=== PATIENT | female | born 1985 | race American Indian/Alaskan Native ===

== ENCOUNTER 2018-08-12 21:21 | Emergency (ER) | payer OTHER ==
--- NOTE | 2018-08-12 21:34 | Emergency Department Report ---
Blank Doc - Documentation Documentation: This is a 32-year-old female that presents with epigastric pain with nausea. Denies any vomiting. Denies any other complaints or symptoms. This initial assessment/diagnostic orders/clinical plan/treatment(s) is/are subject to change based on patient's health status, clinical progression and re- assessment by fellow clinical providers in the ED. Further treatment and workup at subsequent clinical providers discretion. Patient/guardians urged not to elope from the ED as their condition may be serious if not clinically assessed and managed. Initial orders include: 1- Patient sent to [facility] for further evaluation and treatment 2- labs 3- UA
[2018-08-12 22:05] LABS: Basophils # (Auto) 0.1 K/mm3 (0.0-0.1); Basophils % (Auto) 1.2 % (0.0-1.8); Eosinophils # (Auto) 0.2 K/mm3 (0.0-0.4); Eosinophils % (Auto) 2.8 % (0.0-4.3); Hematocrit 38.9 % (30.3-42.9); Hemoglobin 12.7 gm/dl (10.1-14.3); Lymphocytes # (Auto) 2.1 K/mm3 (1.2-5.4); Mean Corpuscular HGB Conc 33 % (30-34); Mean Corpuscular Volume 78 fl (79-97); Monocytes # (Auto) 0.3 K/mm3 (0.0-0.8); Monocytes % (Auto) 4.3 % (0.0-7.3); Platelet Count 240 K/mm3 (140-440); Red Blood Count 4.98 M/mm3 (3.65-5.03); Red Cell Distribution Width 13.6 % (13.2-15.2)
[2018-08-12 22:19] LABS: Alanine Aminotransferase 7 units/L (7-56); Albumin 4.6 g/dL (3.9-5); BUN/Creatinine Ratio 13; Blood Urea Nitrogen 12 mg/dL (7-17); Calcium 9.6 mg/dL (8.4-10.2); Hemolysis Index 4
[2018-08-12 22:20] LABS: Bilirubin,Direct < 0.2 mg/dL (0-0.2)
[2018-08-12 22:50] LABS: Bilirubin,Urine NEG (Negative); Blood,Urine SM (Negative); Color,Urine Colorless (Yellow); Protein,Urine <15 mg/dL mg/dL (Negative); Urobilinogen,Urine < 2.0 mg/dL (<2.0)
[2018-08-12] MEDS ORDERED: NORCO 5/325 PO ONE (23:49)
[2018-08-12] MEDS ORDERED: ALUM-MAG HYDROX-SIMETH 200-200-20MG/5ML PO ONE (23:50)
[2018-08-12] MEDS ORDERED: LIDOCAINE VISCOUS 2% PO ONE (23:50)
--- NOTE | 2018-08-12 23:52 | Emergency Department Report ---
HPI - General Chief Complaint: Abdominal Pain Time Seen by Provider: 08/12/18 21:35 - HPI HPI: 32-year-old -[place] female presents to the emergency department with a 2 day history of some upper abdominal pain, nausea without vomiting, and a mild frontal headache. Currently the headache is 3 out of 10 and is located over the frontal sinuses. The patient says that the abdominal pain worsens with food. She recently became a vegetarian. She took some ibuprofen for her discomfort prior to arrival with some mild relief. Otherwise she denies any past medical history. No recent travel or sick contacts at home. She denies any vision change, slurred speech or any neurological deficits. She denies any vaginal bleeding, vaginal discharge, dysuria or diarrhea. ED Past Medical Hx - Past Medical History Previous Medical History?: No - Surgical History Past Surgical History?: Yes Hx Appendectomy: Yes - Social History Smoking Status: Never Smoker Substance Use Type: None - Medications Home Medications: Home Medications Medication Instructions Recorded Confirmed Last Taken Type Omeprazole 20 mg PO QDAY #20 capsule. 08/13/18 Unknown Rx ED Review of Systems ROS: Stated complaint: ABD PAIN Other details as noted in HPI Comment: All other systems reviewed and negative Constitutional: denies: chills, fever Eyes: denies: eye pain ENT: denies: ear pain, throat pain Respiratory: denies: cough, shortness of breath Cardiovascular: denies: chest pain, palpitations Gastrointestinal: abdominal pain, nausea. denies: vomiting Genitourinary: denies: dysuria, discharge Musculoskeletal: denies: back pain, arthralgia Skin: denies: rash, lesions Neurological: headache. denies: weakness, numbness Physical Exam - Physical Exam Physical Exam: GENERAL: The patient is well-developed well-nourished. HEENT: Normocephalic. Atraumatic. Patient has moist mucous membranes. EYES: Extraocular motions are intact. Pupils are equal and reactive to light bilaterally. No nystagmus. NECK: Supple. Trachea is midline. CHEST/LUNGS: Clear to auscultation. There is no respiratory distress noted. HEART/CARDIOVASCULAR: Regular. There is no tachycardia. There is no obvious murmur. ABDOMEN: Abdomen is soft. Mild upper abdominal tenderness to palpation. No guarding. Patient has normal bowel sounds. There is no abdominal distention. SKIN: Skin is warm and dry. NEURO: The patient is awake, alert, and oriented. The patient is cooperative. The patient has no focal neurologic deficits. The patient has normal speech. Cranial nerves II through XII grossly intact. MUSCULOSKELETAL: There is no tenderness or deformity. There is no limitation range of motion. There is no evidence of acute injury. ED Medical Decision Making - Lab Data Result diagrams: 08/12/18 21:54 08/12/18 21:54 - Radiology Data Radiology results: report reviewed PROCEDURE: US ABDOMEN LIMITED TECHNIQUE: Routine imaging was obtained of the right upper quadrant. HISTORY: upper abd pain COMPARISONS: None FINDINGS: The gallbladder is normal in size and wall thickness. Stones are not seen. The common bile measures 2.4 mm which is normal. The liver is normal in size and echotexture. The abdominal aorta proximally is normal in caliber 1.8 cm. The entire aorta is not seen. The right kidney shows no evidence of hydronephrosis. It measures 9.6 x 3.4 x 4.4. The pancreatic head appears normal. The entire pancreas is not seen. IMPRESSION: Within normal limits.. This document is electronically signed by King Couch MD., August 13 2018 01:04:09 AM ET Transcribed By: RB Dictated By: KING COUCH MD Electronically Authenticated By: KING COUCH MD Signed Date/Time: 08/13/18 010 - Medical Decision Making Patient presents with a two-day history of a mild frontal headache and upper abdominal pain with some nausea without vomiting. On examination she has no focal, motor or sensory deficits in her cranial nerves are intact. She says that the headache was mild at about 2 out of 10 and without any deficits and did not feel that CT imaging of the head was necessary at this time. The labs were unremarkable. An upper quadrant abdominal ultrasound was done that did not show any acute process. She was given a GI cocktail and a pain pill. Upon reevaluation she is feeling improved. Some of her symptoms and descriptions sound consistent with GERD and/or gastritis. We discussed some dietary and/or lifestyle changes to make. She will go home on some omeprazole. She has been given a primary care and GI referral. She will return to the ER with any worsening of her symptoms or any acute distress. - Differential Diagnosis GERD, gastritis, cholelithiasis, pancreatitis, tension headache Critical Care Time: No Critical care attestation.: If time is entered above; I have spent that time in minutes in the direct care of this critically ill patient, excluding procedure time. ED Disposition Clinical Impression: Abdominal pain Qualifiers: Abdominal location: upper abdomen, unspecified Qualified Code(s): R10.10 - Upper abdominal pain, unspecified Headache Qualifiers: Headache type: unspecified Headache chronicity pattern: unspecified pattern Intractability: not intractable Qualified Code(s): R51 - Headache Disposition: TO HOME OR SELFCARE Is pt being admited?: No Condition: Stable Instructions: Gastroesophageal Reflux Disease (ED), Acute Headache (ED), Abdominal Pain (ED) Additional Instructions: Please follow up with a primary care physician in the next few days. I am also giving you a referral for a field artillery fire control man, Dr. Hua, to follow up regarding your abdominal pain. Return to the emergency Department with any worsening of your symptoms or any acute distress. Prescriptions: Omeprazole 20 mg PO QDAY #20 capsule. Referrals: [facility] [Outside] - 3-5 Days CLINTON HUA MD [Staff Physician] - 2-3 Days NANDO RIVERA MD [Primary Care Provider] - 2-3 Days
--- NOTE | 2018-08-13 01:06 | Ultrasound Report ---
PROCEDURE: US ABDOMEN LIMITED TECHNIQUE: Routine imaging was obtained of the right upper quadrant. HISTORY: upper abd pain COMPARISONS: None FINDINGS: The gallbladder is normal in size and wall thickness. Stones are not seen. The common bile measures 2 .4 mm which is normal. The liver is normal in size and echotexture. The abdominal aorta proximally is normal in caliber 1.8 cm. The entire aorta is not seen. The right kidney shows no evidence of hydron ephrosis. It measures 9.6 x 3.4 x 4.4. The pancreatic head appears normal. The entire pancreas is not seen. IMPRESSION: Within normal limits.. This document is electronically signed by King Couch MD., August 13 2018 01:04:09 AM ET
[2018-08-13 01:47] VITALS: BP 112/72
== END 2018-08-13 01:46 | disposition home or self-care (01) ==
LOC: ED 21:21
DX: R10.10 Upper abdominal pain, unspecified (principal); R51 Headache; Z90.49 Acquired absence of other specified parts of digestive tract
CPT/HCPCS: 36415; 76705; 80048; 80076; 81001; 83690; 84703; 85025